=== PATIENT | male | born 1955 | race Caucasian/White ===

== ENCOUNTER 2020-07-26 15:35 | Outpatient (CLI) | payer MEDICARE, OTHER | END 2020-07-26 15:36 | disposition home or self-care (01) | LOC: BICCT 15:35 | PROVIDERS: ATTEND Urology | DX: N40.1 Benign prostatic hyperplasia with lower urinary tract symptoms (principal); R31.0 Gross hematuria; R33.8 Other retention of urine; R39.15 Urgency of urination; N13.8 Other obstructive and reflux uropathy; K76.89 Other specified diseases of liver; N28.89 Other specified disorders of kidney and ureter | CPT/HCPCS: 74176 ==